=== PATIENT | male | born 1935 | race Caucasian/White ===

== ENCOUNTER 2016-09-26 08:35 | Day surgery (SDC) | payer OTHER ==
[2016-09-26] MEDS ORDERED: NS 500 ML IV 500 ML IV ONE (09:05)
[2016-09-26] MEDS ORDERED: TETRACAINE 0.5% OPHTH 1 DOSE AFFEYE ONE ×3 (09:15→13:06)
[2016-09-26] MEDS ORDERED: VIGAMOX 0.5% OPHTH 1 DOSE AFFEYE ONE ×6 (09:16→13:18)
[2016-09-26] MEDS ORDERED: PROLENSA OPHTH 1 DOSE AFFEYE ONE (09:30)
[2016-09-26] MEDS ORDERED: ALPHAGAN-P OPHTH 1 DOSE AFFEYE ONE (09:32)
[2016-09-26] MEDS ORDERED: CYCLOGYL 1% OPHTH 1 DOSE OP ONE ×2 (09:33→09:35)
[2016-09-26] MEDS ORDERED: MYDRIACIL OPHTH 1 DOSE AFFEYE ONE ×2 (09:33→09:35)
[2016-09-26] MEDS ORDERED: AK-DILATE 2.5% OPHTH 1 DOSE OP ONE ×2 (09:33→09:35)
[2016-09-26] MEDS ORDERED: BETADINE OPHTH SOLN 5% EACHEYE ONE (12:54)
[2016-09-26] MEDS ORDERED: ADRENALINE CHL INJ IJ ONE (13:06)
[2016-09-26] MEDS ORDERED: XYLOCAINE-MPF 1% IJ ONE (13:06)
[2016-09-26] MEDS ORDERED: DUOVISC IO ONE (13:06)
[2016-09-26] MEDS ORDERED: BSS OPHTH (PLAIN) 500 ML with VANCOMYCIN HCL 500 MG VIAL 25 MG, ADRENALINE CHL INJ 1 MG IR ONE ×3 (13:08)
[2016-09-26] MEDS ORDERED: MIOCHOL-E IO ONE (13:17)
[2016-09-26 13:49] VITALS: BP 149/72
== END 2016-09-26 13:43 | disposition home or self-care (01) ==
LOC: SURG1 08:35
PROVIDERS: ATTEND Ophthalmology
PROC: 08DJ3ZZ Extraction of Right Lens, Percutaneous Approach (ICD-10-PCS; principal; 2016-09-26 08:15)
PROC: 08RJ3JZ Replacement of Right Lens with Synthetic Substitute, Percutaneous Approach (ICD-10-PCS; principal; 2016-09-26 08:15)
DX: H25.11 Age-related nuclear cataract, right eye (principal); H25.011 Cortical age-related cataract, right eye; H25.041 Posterior subcapsular polar age-related cataract, right eye
CPT/HCPCS: 99100; A4217; J0170; J3370

== ENCOUNTER → 2016-10-17 | Day surgery (SDC) | payer OTHER ==
[2016-09-26 13:49] VITALS: BP 149/72
[~2016-10-17] MED LIST: NS 500 ML IV 0 ML IV ONE
== END ==
LOC: SURG1 10:52
PROVIDERS: ATTEND Ophthalmology
DX: H25.12 Age-related nuclear cataract, left eye (principal); H25.012 Cortical age-related cataract, left eye; H25.042 Posterior subcapsular polar age-related cataract, left eye; H52.222 Regular astigmatism, left eye; Z53.8 Procedure and treatment not carried out for other reasons

== ENCOUNTER 2016-10-24 09:50 | Day surgery (SDC) | payer OTHER ==
[2016-10-24] MEDS ORDERED: NS 500 ML IV 500 ML IV ONE (11:16)
[2016-10-24] MEDS ORDERED: TETRACAINE 0.5% OPHTH 1 DOSE AFFEYE ONE ×2 (11:45→14:40)
[2016-10-24] MEDS ORDERED: VIGAMOX 0.5% OPHTH 1 DOSE AFFEYE ONE ×5 (11:50→14:59)
[2016-10-24] MEDS ORDERED: PROLENSA OPHTH 1 DOSE AFFEYE ONE (12:01)
[2016-10-24] MEDS ORDERED: ALPHAGAN-P OPHTH 1 DOSE AFFEYE ONE (12:02)
[2016-10-24] MEDS ORDERED: CYCLOGYL 1% OPHTH 1 DOSE OP ONE ×3 (12:03→12:05)
[2016-10-24] MEDS ORDERED: MYDRIACIL OPHTH 1 DOSE AFFEYE ONE ×3 (12:03→12:05)
[2016-10-24] MEDS ORDERED: AK-DILATE 2.5% OPHTH 1 DOSE OP ONE ×3 (12:03→12:05)
[2016-10-24] MEDS ORDERED: BETADINE OPHTH SOLN 5% EACHEYE ONE (14:40)
[2016-10-24] MEDS ORDERED: DUOVISC IO ONE (14:46)
[2016-10-24] MEDS ORDERED: BSS OPHTH (PLAIN) 500 ML with VANCOMYCIN HCL 500 MG VIAL 25 MG, ADRENALINE CHL INJ 1 MG IR ONE ×3 (14:46)
[2016-10-24] MEDS ORDERED: ADRENALINE CHL INJ IJ ONE (14:46)
[2016-10-24] MEDS ORDERED: XYLOCAINE-MPF 1% IJ ONE (14:46)
[2016-10-24 15:26] VITALS: BP 130/62
[2016-10-24] MEDS ORDERED: DIPRIVAN VIAL ONE (15:49)
== END 2016-10-24 15:25 | disposition home or self-care (01) ==
LOC: SURG1 09:50
PROVIDERS: ATTEND Ophthalmology
PROC: 08RK3JZ Replacement of Left Lens with Synthetic Substitute, Percutaneous Approach (ICD-10-PCS; principal; 2016-10-24 22:00)
PROC: 08DK3ZZ Extraction of Left Lens, Percutaneous Approach (ICD-10-PCS; principal; 2016-10-24 22:00)
DX: H25.12 Age-related nuclear cataract, left eye (principal); H25.012 Cortical age-related cataract, left eye; H25.042 Posterior subcapsular polar age-related cataract, left eye
CPT/HCPCS: 99100; A4217; J0170; J3370; J3490